=== PATIENT | male | born 1965 | race Two or more races ===

== ENCOUNTER 2020-02-24 08:39 | Day surgery (SDC) | payer OTHER, SELFPAY ==
--- NOTE | 2020-02-23 08:27 | HO.ANESPROP2 ---
Documented by User: Karin Rueda 02/23/20 08:27 HPI - Anesthesia Eval Consult details Narrative: 55yo M for colonoscopy [facility] Past Medical History Medical History History of diverticulosis Partial blindness Surgical History Surgical History History of nasal surgery Hx of colonoscopy Hx of hand surgery Hx of shoulder surgery Status post left knee surgery Status post right knee surgery Social History Social History Smoking Status: Never smoker Second Hand Smoke Exposure: No Use of substances other than those prescribed or required for medical reasons: No Advance Directives: No Advance Directives Information Provided: Yes Advance Directives on File: No Meds Allergies Allergy/AdvReac Type Severity Reaction Status Date / Time No Known Allergies Allergy Verified 02/24/20 06:10 Exam Exam Date and Time: February 23, [id number] Assessment and Plan Assessment Anesthesia Assessment: Chart Reviewed Documented by User: Brandie Farmer 02/24/20 09:19 [facility] Past Medical History Medical History History of diverticulosis Partial blindness Surgical History Surgical History History of nasal surgery Hx of colonoscopy Hx of hand surgery Hx of shoulder surgery Status post left knee surgery Status post right knee surgery Social History Social History Smoking Status: Never smoker Second Hand Smoke Exposure: No Use of substances other than those prescribed or required for medical reasons: No Advance Directives: No Advance Directives Information Provided: Yes Advance Directives on File: No Meds Allergies Allergy/AdvReac Type Severity Reaction Status Date / Time No Known Allergies Allergy Verified 02/24/20 06:10 Exam Airway Mallampati Class: II TM Dist: >3cm Neck ROM: Full Assessment and Plan Assessment Anesthesia Assessment: Anesthesia Plan Discussed and Chart Reviewed Final Anesthetic Review NPO: Yes ASA Class: I Final Preanesthetic Review: No Changes in Pt Med Stat, Meds/Allgs Chart Reviewed, Consent Obtained/Reviewed and Anes Risks/Benef Reviewed Patient Risk: Low Procedure Risk: Low Assessment/Block/Sedation in SS: Assess/Block/Sedation-SS Anesthetic Plan Anesthetic Plan: MAC: Disposition: Standard PACU
[2020-02-23 12:54] VITALS: BMI 27.8
[2020-02-24 09:00] VITALS: PULSE 66; RESP 18; TEMP 36.1
[2020-02-24] MEDS: Lactated Ringers 1,000 ML 100 ML IVCONT (09:15)
[2020-02-24 10:09] VITALS: BP 93/58; PULSE 67; RESP 16; TEMP 36.1; O2SAT 97
--- NOTE | 2020-02-24 10:10 | PM.OP ---
Brief Operative Note Date of procedure: 02/24/20 Pre-op diagnosis: Screening, Hx of colon polyps Post-op diagnosis: other (Diverticulosis, Internal hemorrhoids) Procedure: Colonoscopy to cecum and TI Surgeon: Brayan Dumont Anesthesia: MAC Estimated blood loss (mL): 0 Pathology: none sent Condition: stable Disposition: PACU
[2020-02-24 10:24] VITALS: BP 108/72; PULSE 67; RESP 16; TEMP 36.2; O2SAT 95
--- NOTE | 2020-02-24 10:25 | OP_ITS ---
SURGEON: Brayan Dumont MD INDICATIONS: The patient presents for followup of personal history of a tubular adenoma of the colon, and need for colorectal cancer screening. Full consent has been obtained from him for this, including risks of bleeding and perforation. PREOPERATIVE DIAGNOSIS: POSTOPERATIVE DIAGNOSIS: PROCEDURE PERFORMED: Colonoscopy to cecum and terminal ileum. ESTIMATED BLOOD LOSS: COMPLICATIONS: ANESTHESIA: Monitored anesthesia care. ASSISTANTS: SPECIMENS: PREOPERATIVE DIAGNOSES: Colorectal cancer screening and personal history of tubular adenoma of the colon. POSTOPERATIVE DIAGNOSES: Colorectal cancer screening and personal history of tubular adenoma of the colon, mild sigmoid diverticulosis, small internal hemorrhoids. DESCRIPTION OF PROCEDURE: The patient was placed in the left lateral decubitus position. The digital rectal exam revealed no abnormalities. The prostate felt smooth and without mass. The Olympus video pediatric colonoscope was entered into the rectum and advanced easily to the cecum. Once in the cecum, I did identify normal-appearing cecal pouch with appendiceal orifice and a normal-appearing ileocecal valve. The terminal ileum was cannulated and appeared normal. The scope was withdrawn back in the colon. The entire cecum and ileocecal valve appeared normal. The scope was slowly withdrawn assessing all mucosal surfaces carefully. Preparation was excellent. I did not visualize any sign of polyps, colitis, nor angiodysplasia. There was a mild amount of sigmoid diverticulosis. In the rectum, scope was retroflexed visualizing internal hemorrhoids, but no other pathology. The rectal mucosa appeared normal. The scope was straightened out and withdrawn from the patient. He tolerated the procedure well and was returned to the recovery area in stable condition. IMPRESSION: 1. Mild sigmoid diverticulosis. 2. Internal hemorrhoids. PLAN: Given his previous history, I would recommend a followup colonoscopy in 5 years for further screening. He will otherwise see me on a p.r.n. basis. MD RAYA Gunter/LILIAN / [phone]
--- NOTE | 2020-02-24 10:43 | HO.POSTANES ---
Post Anesthesia Evaluation Post Anesthesia Evaluation Vital Signs: Vital Signs Temp Pulse Resp BP Pulse Ox 02/24/20 10:24 97.2 F 67 16 108/72 95 02/24/20 10:09 96.9 F 67 16 93/58 L 97 02/24/20 09:00 97 F 66 18 Anesthesia: Monitored Mental Status: Awake Pain Control: Satisfactory Nausea/Vomiting: None Hydration: Adequate Anesthesia-Related Issues: No Anes. Related Issues
== END 2020-02-24 10:45 | disposition home or self-care (01) ==
PROVIDERS: PCP Internal Medicine; Visit Provider Internal Medicine
PROC: 0DJD8ZZ Inspection of Lower Intestinal Tract, Via Natural or Artificial Opening Endoscopic (ICD-10-PCS; CPT 45378; principal; 2020-02-24 09:50)
DX: Z12.11 Encounter for screening for malignant neoplasm of colon (principal); Z86.010 Personal history of colon polyps; K57.30 Diverticulosis of large intestine without perforation or abscess without bleeding; K64.8 Other hemorrhoids
CPT/HCPCS: 45378; J3010